=== PATIENT | female | born 1955 | race Caucasian/White ===

== ENCOUNTER 2020-08-29 06:58 | Emergency (ER) | payer OTHER | END 2020-08-29 07:56 | disposition home or self-care (01) | LOC: BURERS 06:58 | DX: S13.4XXA Sprain of ligaments of cervical spine, initial encounter (principal); I10 Essential (primary) hypertension; E78.00 Pure hypercholesterolemia, unspecified; Z79.899 Other long term (current) drug therapy; V40.5XXA Car driver injured in collision with pedestrian or animal in traffic accident, initial encounter | CPT/HCPCS: 70450; 72125 ==

== ENCOUNTER 2021-08-09 19:43 | Emergency (ER) | payer OTHER ==
[2021-08-09] MEDS ORDERED: Acetaminophen 325 MG TAB ONE (20:41)
[2021-08-09] MEDS ORDERED: Acetaminophen 325 MG Suppository ONE (20:41)
== END 2021-08-09 22:09 | disposition home or self-care (01) ==
LOC: BURERS 19:43
DX: S30.0XXA Contusion of lower back and pelvis, initial encounter (principal); I10 Essential (primary) hypertension; E78.00 Pure hypercholesterolemia, unspecified; F17.210 Nicotine dependence, cigarettes, uncomplicated; W01.0XXA Fall on same level from slipping, tripping and stumbling without subsequent striking against object, initial encounter
CPT/HCPCS: 72170

== ENCOUNTER 2022-07-26 08:30 | Outpatient (CLI) | payer MEDICARE ==
[2022-07-26 09:06] LABS: #Basophils 0.1 thou/uL (0.0-0.2); #Eosinphils 0.2 thou/uL (0.0-0.7); #Lymphocytes 1.5 thou/uL (1.20-3.40); #Monocytes 0.8 thou/uL (0.11-0.59); #Neutrophils 6.9 thou/uL (1.40-6.50); %Basophils 1.4 % (0.0-1.0); %Eosinophils 2.6 % (0.0-10.0); %Lymphocytes 15.8 % (21.0-51.0); %Monocytes 8.2 % (0.0-10.0); %Neutrophils 72.1 % (42.0-75.0); Hemoglobin 15.5 g/dL (12.0-16.0); Mean Corpuscular Hemoglobin 29.8 pg (27.0-31.0); Mean Corpuscular Volume 87.6 fl (78.0-98.0); Mean Platelet Volume 15.1 fL (7.4-10.4); Platelet Count 125 10x3/uL (130-400); RBC Distribution Width 12.2 % (11.5-14.5); White Blood Cell (WBC) Count 9.6 10x3/uL (4.8-10.8)
[2022-07-26 09:17] LABS: ALT (SGPT) 14 U/L (8-55); AST (SGOT) 16 U/L (5-34); Alkaline Phosphatase 85 U/L (40-110); Anion Gap 13 mmol/L (10-20); BUN (Urea Nitrogen) 10 mg/dL (9.8-20.1); Bilirubin, Total 0.6 mg/dL (0.2-1.2); Calc. Creatinine Clearance 0 mL/min (70-130); Carbon Dioxide 28 mmol/L (23-31); Chloride 104 mmol/L (98-107); Cholesterol 223 mg/dl (< 200 Desired); Estimated GFR 77; Globulin 2.6 g/dL (2.4-3.5); Glucose 104 mg/dL (80-115); HDL Cholesterol 45 mg/dL (>60 Neg Risk); LDL Cholesterol, Calculated 149 mg/dL; Potassium 4.3 mmol/L (3.5-5.1); Protein, Total 6.6 g/dL (5.8-8.1); Sodium 141 mmol/L (136-145); Triglycerides 146 mg/dL (Less than 150)
[2022-07-26 10:30] LABS: Platelet Morphology Comment Appears Decreased; RBC Morphology Normal
== END 2022-07-26 08:31 | disposition home or self-care (01) ==
LOC: BURRAD 08:30
PROVIDERS: ATTEND Physician Assistant
DX: M47.22 Other spondylosis with radiculopathy, cervical region (principal); Z13.6 Encounter for screening for cardiovascular disorders; I10 Essential (primary) hypertension; Z98.1 Arthrodesis status
CPT/HCPCS: 36415; 72050; 80053; 80061; 85025